=== PATIENT | female | born 1955 | race Caucasian/White ===

== ENCOUNTER 2021-07-17 09:00 | Outpatient (RCR) | payer MEDICARE, SELFPAY ==
--- NOTE | 2021-06-17 09:50 | HP.PTEVAL_ITS ---
Patient's Visit Information EMMANUEL CASIANO is a 66 year old F referred to Physical Therapy by MASON SANDERS with a diagnosis of Left TKR. Date of Evaluation: 06/17/21 Physical Therapist: Shakira Borrero DPT - Visit Plan Frequency: 3x /Week Duration: 4 Weeks Plan: Left TKR 06/11/21- Focus on LE strength/stabilization, ROM and functional mobility. - Subjective Patient reports left TKR 06/11/[address] Hdz. She went home the same day - lives with in a single story home- with a single step to enter. Prior to surgery she was fully I and her goals are to get back to do that with less pain. Worst: 11/25 Agg: trying to get up from sitting. Eases: sitting and elevation, ice. Best: 1-03/28. Describes the pain as soreness. She has significant bruising that is really sore- she has a lot of soreness in her thigh area. Soreness over the knee cap. No radiating pain to the ankles. No N/T in the toes. No loss or change in bowel or bladder. Sleep: prior to surgery she was in bed but is now on a chair- she is concerned about the height of her bed. She has pre-hab at [facility]. SHe has been working on quad sets but she is hesitant to bend due to pain. PMHx: HTN, high cholestrol, acid reflux. Meds: Hydrocodone and Tramadol. - Objective Posture: FH, RS can correct but does not maintain. Gait: FWW- antalgic- decreased stance on the left LE- decreased heel/toe pattern- required rest break after 150 feet. Stairs: unable today due to pain. HR/TR: able. SLS: weight shift. Observation: no s/s of infection-healing well- took bandage off today during PT. Girth: patella: 51 cm, 6 above: 59 cm Palpation: tender along medial and lateral joint line. Observation: significant bruising ROM: 0-40 degrees without OP. Strength: SLR with min A. Flexion: 10 Extension: 5 Ankle: 5/5. Flex: HS: mild, Gastroc: mild. WOMAC:69.0 - Balance/Special Test Scores Lower Extremity Functional Score: 11 WOMAC Total Score: 69 WOMAC Percentatge: 28.1300 - Goals Goal 1:: Patient will be I with HEP and progression Goal Time Frame: 4-6 Weeks Goal 2:: Patient will ambulate >300 feet with no AD and a normalized gait pattern Goal Time Frame: 4-6 Weeks Goal 3:: Patient will asc/desc 8 stairs recip with 1 HR Goal Time Frame: 4-6 Weeks Goal 4:: Patient will perform a TUG test in under 10 seconds Goal Time Frame: 4-6 Weeks Goal 5:: Patient will demo 0-115 degrees of ROM Goal Time Frame: 4-6 Weeks - Rehabilitation Potential Physical Therapy Diagnosis: Patient presents with hypomobility- she has decreased LE and core strength/stabilization, flex, ROM and muscular endurance s/p left TRK leading to abnormal gait and decreased ability to perform ADL's. Rehabilitation Potential: Fair - Anticipated Interventions Patient/Client Instruction: Educate patient on: Benefits of Fitness Program Therapeutic Exercise to Include: Strength training, Endurance training, Balance training, Coordination, Agility training, Body mechanics, Postural training, Flexibilty training, Gait and locomotor training, Neuromotor development, Passive ROM, Active ROM, Dynamic Lumbar Stabilization, Scapular Strength/Stabilization For the Purpose of:: To improve muscle performance and motor function TENS: Yes Cryotherapy (ice pack, ice massage): Yes Thermo therapy (hot pack): Yes Ultrasound (thermal/non thermal): No - TKR Thank you for the opportunity to evaluate your patient. For Medicare and Medicare HMO plans, please review the plan of care and approve it. It will need to be FAXED BACK to us at [phone] for Medicare purposes. For Medicare only, by signing this I certify the plan of care. Please let me know if there are questions or concerns regarding this plan of care. Physician Signature: Date:
--- NOTE | 2021-07-17 09:23 | HP.PTDCSUM ---
It has been my pleasure to treat EMMANUEL CASIANO referred by MASON SANDERS, with the diagnosis of Left TKR DOS: 06/11/21 for a total of 11 visit(s). Discharge Date: Please see the following information for a summary of their discharge status. Subjective: Patient reports that she is doing great! She has some stiffness and swelling but that is expected. Sees Thursday Left Knee Pain Intensity (Out of 10): 0 % Improvement: 100 Objective/Function: Posture: FH, RS can correct but does not maintain. Gait: no deviation noted Stairs: asc/desc 8 recip with 1 HR. HR/TR: able. SLS: 5 seconds. Observation: no s/s of infection-healing well. Girth: patella: 44 cm, 6 above: 54 cm Palpation: not tender to touch. ROM: 0-120 degrees without OP. Strength: Flexion: 25 Extension: 30 Ankle: 5/5. Flex: HS: mild, Gastroc: mild. WOMAC:5.2 Goal 1:: Patient will be I with HEP and progression Goal Progress: Goal Met Goal 2:: Patient will ambulate >300 feet with no AD and a normalized gait pattern Goal Progress: Goal Met Goal 3:: Patient will asc/desc 8 stairs recip with 1 HR Goal Progress: Goal Met Goal 4:: Patient will perform a TUG test in under 10 seconds Goal Progress: Goal Met Goal 5:: Patient will demo 0-115 degrees of ROM Goal Progress: Goal Met Plan: Left TKR 06/11/21- Focus on LE strength/stabilization, ROM and functional mobility. If there are questions or concerns regarding this patient's physical therapy, please feel free to call me at [phone]. Thank you for the referral of this patient. Sincerely, Shakira Borrero, DPT Balance/Gait/Functional tests - Balance/Special Test Scores Lower Extremity Functional Score: 76 TUG Test Time Seconds: 8.9 Tug Test: <10 sec.=free mobile WOMAC Total Score: 69 WOMAC Percentage: 28.1300
== END 2021-07-17 10:20 | disposition home or self-care (01) ==
LOC: PT 09:00
DX: Z47.1 Aftercare following joint replacement surgery (principal); Z96.652 Presence of left artificial knee joint; M17.12 Unilateral primary osteoarthritis, left knee
CPT/HCPCS: 97110; 97162; 97164